=== PATIENT | female | born 1955 | race Caucasian/White ===

== ENCOUNTER 2019-07-01 12:40 | Outpatient (CLI) | payer BC, SELFPAY ==
--- NOTE | ~2019-07-01 | MR_ITS ---
EXAMINATION: MR hip RT w con DATE: 07/01/2019 14:55 INDICATION: Right hip pain TECHNIQUE: Magnetic resonance (MR) arthrogram of the right hip was performed following intra-articula r gadolinium contrast injection and without intravenous contrast. Details of the hip joint injection have been dictated separately. Sequences included small field of view of the right hip with axial and sagittal T1-weighted FS SE and T2-weighted FS FSE and coronal T1-weighted SE and T2-weighted FS FSE . Additional T1-weighted FGRE images in a radial pattern oriented orthogonal to the acetabular rim we re obtained for evaluation of the labrum. COMPARISON: None. FINDINGS: Bones/labrum/cartilage: Alignment is normal. No fracture, avascular necrosis or pathologic marrow replacing process. Contras t filled labral tear the base of the 10:00-11:00 position of the posterior superior acetabular labrum . Marginal osteophytes along the anterosuperior and superolateral acetabulum appears to replace a sig nificant portion of the labrum the remaining tissue of which now appears small. Mild nonuniform parti al thickness acetabular and femoral cartilage loss along the peripheral margins of the joint space. Soft tissues: Normal and symmetric muscle bulk and signal in the pelvis and visualized proximal thighs. The bilater al iliopsoas, gluteal and proximal hamstring tendons are normal. The uterus is not identified and has likely been surgically resected. Limited evaluation of visceral organs of the pelvis is otherwise un remarkable. No pathologically enlarged pelvic/inguinal lymphadenopathy. IMPRESSION: 1. Mild right hip osteoarthritis with tear at the posterosuperior acetabular labrum. Reviewed, dictated and finalized at location A. ON BREAKER IMPRESSION: 1. Mild right hip osteoarthritis with tear at the posterosuperior acetabular la margarita.
--- NOTE | ~2019-07-01 | XR_ITS ---
. EXAMINATION: XR fl inj hip RT for MR/CT DATE: 07/01/2019 15:00 INDICATION: Right hip pain. TECHNIQUE: A time-out was performed to verify the patient's name, date of , and procedure to b e performed. The procedure including the risks, benefits, and alternatives was discussed with the pat ient. Risks discussed included bleeding and infection. The patient understood the risks and agreed to proceed. The skin overlying the right hip joint was prepped and draped in usual sterile fashion. An esthetic was administered with 1% lidocaine subcutaneously. A 22 G needle was advanced under fluoros copic guidance into the joint. Subsequently, injectate consisting of 6 mL of 1:200 Multihance, 1:4 1 % lidocaine, and 1:4 Omnipaque 240 was instilled. The needle was removed and the entry site was brody ladan and dressed. There were no immediate complications. Fluoroscopy exposure time was 0.1 minutes. T he total number of images was 3. FINDINGS: Real-time fluoroscopy demonstrates the needle and contrast in the right hip joint. IMPRESSION: 1. Successful right hip joint injection of contrast for subsequent MR arthrography. Reviewed, dictated and finalized at location A. 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 Successful right hip joint injection of contrast for subsequent MR arthrogra phy.
== END 2019-07-01 12:41 | disposition home or self-care (01) ==
PROVIDERS: PCP Orthopaedic Surgery; Visit Provider Orthopaedic Surgery
DX: S73.191A Other sprain of right hip, initial encounter (principal); X58.XXXA Exposure to other specified factors, initial encounter; M16.11 Unilateral primary osteoarthritis, right hip
CPT/HCPCS: 20610; 73722; 77002; Q9966

== ENCOUNTER 2020-01-31 09:14 | Outpatient (CLI) | payer BC, SELFPAY ==
--- NOTE | ~2020-01-31 | MM_ITS ---
EXAMINATION: MM screening maximino BI w quentin HISTORY: Screening TECHNIQUE: Craniocaudal and mediolateral oblique 3-D tomosynthesis images were obtained and synthetic 2-D images were generated. CAD analysis was submitted and interpreted. COMPARISON: Comparison to multiple prior studies sequentially, with oldest reviewed study dated 03/25. BREAST PARENCHYMAL COMPOSITION: There are scattered areas of fibroglandular density. FINDINGS: There is no evidence of suspicious mass, calcification, or architectural distortion to sugg est malignancy in either breast. There has been no suspicious interval change. IMPRESSION: 1. No mammographic evidence of malignancy. 2. Recommend routine screening mammography in one year. BI-RADS Category 1: Negative Reviewed, dictated and finalized at location A.
--- NOTE | ~2020-01-31 | DEXA_ITS ---
Bone Density Report Name: Irlanda Benites Age: 64 Sex: Female Ethnicity: White Date of : 1955 Indication: osteopenia; prior fracture; cancer; hysterectomy; Referring Provider: Leslee Guzman Study: Bone densitometry was performed. Exam Date: January 31, 2020 Accession number: [id number] Bone Density: Region BMD T-score Z-score Classification AP Spine (L1-L4) 0.944 -0.9 0.8 Normal Femoral Neck (Left) 0.656 -1.7 -0.3 Osteopenia Total Hip (Left) 0.813 -1.1 0.1 Osteopenia Total Hip Bilateral Avg 0.754 -1.6 -0.4 Osteopenia Femoral Neck (Right) 0.626 -2.0 -0.5 Osteopenia Total Hip (Right) 0.694 -2.0 -0.8 Osteopenia World Health Organization criteria for BMD impression classify patients as: Normal (T-score at or above -1.0), Osteopenia (T-score between -1.0 and -2.5), or Osteoporosis (T-score at or below -2.5). 10-year Fracture Risk(1): Major Osteoporotic Fracture 15% Hip Fracture 2.3% Reported Risk Factors: [place] (), Neck BMD=0.626, BMI=20.2, previous fracture (1) FRAX(R) Version 3.08. Fracture probability calculated for an untreated patient. Fracture probability may be lower if the patient has received treatment. Previous Exams: Region Exam Age BMD T-score BMD Change BMD Change Date g/cm2 vs Baseline vs Previous AP Spine(L1-L4) 01/31/2020 64 0.944 -0.9 -0.223(-19.1%) -0.046(-4.6%)* 06/29/2015 60 0.990 -0.5 -0.177(-15.1%) -0.087(-8.1%)# 02/28/2011 55 1.077 0.3 -0.090(-7.7%)* -0.067(-5.9%)* 01/28/2008 52 1.144 0.9 -0.023(-1.9%) -0.023(-1.9%) 10/18/2004 49 1.167 1.1 Total Hip(Left) 01/31/2020 64 0.813 -1.1 -0.011(-1.3%)# -0.012(-1.4%) 06/29/2015 60 0.825 -1.0 0.001(0.2%)# 0.022(2.8%)# 02/28/2011 55 0.803 -1.1 -0.021(-2.6%) 0.015(2.0%) 01/28/2008 52 0.788 -1.3 -0.037(-4.4%)* -0.037(-4.4%)* 10/18/2004 49 0.824 -1.0 Total Hip(Right) 01/31/2020 64 0.694 -2.0 -0.061(-8.0%)# -0.067(-8.8%)* 06/29/2015 60 0.761 -1.5 0.006(0.8%)# 0.048(6.8%)# 02/28/2011 55 0.713 -1.9 -0.042(-5.6%)* -0.018(-2.5%) 01/28/2008 52 0.731 -1.7 -0.024(-3.2%) -0.024(-3.2%) 10/18/2004 49 0.755 -1.5 *Denotes significance at 95% confidence level, LSC for AP Spine = 0.022 g/cm2, LSC for Total Hip = 0.027 g/cm2 Clinical Information Provided by Patient: Has had a low trauma fracture Has used the following medications: Vitamin D, Calcium Has the following medical conditions: Cancer, Hysterectomy Patient maximum height
== END 2020-01-31 09:15 | disposition home or self-care (01) ==
LOC: ANHIMG 09:19
PROVIDERS: PCP Family Medicine; Visit Provider Family Medicine
DX: Z12.31 Encounter for screening mammogram for malignant neoplasm of breast (principal); N95.1 Menopausal and female climacteric states; M85.852 Other specified disorders of bone density and structure, left thigh; M85.851 Other specified disorders of bone density and structure, right thigh
CPT/HCPCS: 77063; 77067; 77080

== ENCOUNTER 2021-02-01 10:33 | Outpatient (CLI) | payer MEDICARE, BC, SELFPAY ==
--- NOTE | ~2021-02-01 | MM_ITS ---
EXAMINATION: MM screening maximino BI w quentin HISTORY: Screening mammogram TECHNIQUE: Craniocaudal and mediolateral oblique 3-D tomosynthesis images were obtained and synthetic 2-D images were generated. CAD analysis was submitted and interpreted. COMPARISON: 01/31/2020, 09/08/2018, 07/15/2017 bilateral digital screening mammogram examinations BREAST PARENCHYMAL COMPOSITION: There are scattered areas of fibroglandular density. FINDINGS: There is no evidence of suspicious mass, calcification, or architectural distortion to sugg est malignancy in either breast. There has been no suspicious interval change. IMPRESSION: 1. No mammographic evidence of malignancy. 2. Recommend routine screening mammography in one year. BI-RADS Category 1: Negative Reviewed, dictated and finalized at location A.
== END 2021-02-01 10:34 | disposition home or self-care (01) ==
LOC: ANHIMG 10:38
PROVIDERS: PCP Family Medicine; Visit Provider Physician Assistant
DX: Z12.31 Encounter for screening mammogram for malignant neoplasm of breast (principal)
CPT/HCPCS: 77063; 77067

== ENCOUNTER 2022-02-12 15:25 | Outpatient (CLI) | payer MEDICARE, BC, SELFPAY ==
--- NOTE | ~2022-02-12 | MM_ITS ---
EXAMINATION: MM screening maximino BI w quentin HISTORY: Screening mammogram, family history of breast cancer in her mother. TECHNIQUE: Craniocaudal and mediolateral oblique 3-D tomosynthesis images were obtained and synthetic 2-D images were generated. CAD analysis was submitted and interpreted. COMPARISON: 02/01/2021, 01/31/2020, 09/08/2018 BREAST PARENCHYMAL COMPOSITION: There are scattered areas of fibroglandular density. FINDINGS: There is no suspicious mass, calcification, or architectural distortion to suggest malignan cy in either breast. There has been no suspicious interval change. IMPRESSION: 1. No mammographic evidence of malignancy. 2. Recommend routine screening mammography in one year. BI-RADS Category 1: Negative Reviewed, dictated and finalized at location A.
--- NOTE | ~2022-02-12 | DEXA_ITS ---
Bone Density Report Name: HEVER VALDIVIA Age: 66 Sex: Female Ethnicity: White Date of : 1955 Indication: postmenopausal; screening for osteoporosis; hysterectomy; Referring Provider: JOZEF MOTA Study: Bone densitometry was performed. Exam Date: February 12, 2022 Accession number: [id number] Bone Density: Region BMD T-score Z-score Classification AP Spine(L1-L4) 0.953 -0.9 1.0 Normal Femoral Neck (Left) 0.705 -1.3 0.3 Osteopenia Total Hip (Left) 0.829 -0.9 0.4 Normal Femoral Neck (Right) 0.654 -1.8 -0.2 Osteopenia Total Hip (Right) 0.750 -1.6 -0.3 Osteopenia Total Hip Mean 0.789 -1.3 0.1 Osteopenia World Health Organization criteria for BMD impression classify patients as: Normal (T-score at or above -1.0), Osteopenia (T-score between -1.0 and -2.5), or Osteoporosis (T-score at or below -2.5). 10-year Fracture Risk(1): Major Osteoporotic Fracture 9.5% Hip Fracture 1.3% Reported Risk Factors: [place] (), Neck BMD=0.654, BMI=22.8 (1) FRAX(R) Version 3.08. Fracture probability calculated for an untreated patient. Fracture probability may be lower if the patient has received treatment. Clinical Information Provided by Patient: Has used the following medications: Vitamin D, Calcium Has the following medical conditions: Hysterectomy Patient maximum height was 66 Menopause Age: 40 Drinks caffeinated beverages Onset of menses at age 10 Number of children 2 Impression: The patient has low bone mass, based on the Right Femoral Neck T-score. The patient has an estimated ten-year risk of hip fracture of 1.3% and an estimated ten-year risk of major fracture of 9.5%, based on the WHO FRAX algorithm. Discussion: BONE DENSITY IS LOW AT ONE OR MORE SKELETAL SITES. This patient's lowest T-score is low at one or more skeletal sites. It meets the World Health Organization's (WHO) criteria for ?low bone mass? (T-score between -1.0 and -2.5). The patient's 10-year risk of fracture as calculated by FRAX is less than the threshold where pharmacological therapy is recommended by the National Osteoporosis Foundation (NOF). However, all treatment decisions require clinical judgment and consideration of individual patient factors, including patient preferences, comorbidities, previous drug use, risk factors not captured in the FRAX model (e.g., frailty, falls, vitamin D deficiency, increased bone turnover, interval significant decline in bone density) and possible under or overestimation of fracture risk by FRAX. The patient should follow a healthful lifestyle (good nutrition with adequate calcium and vitamin D, and appropriate weight-bearing exercise). Follow-Up: Consider repeating this study in 2 to 3 years to reassess this patient's status, or sooner if there is some new clin
== END 2022-02-12 15:26 | disposition home or self-care (01) ==
PROVIDERS: PCP Family Medicine; Visit Provider Nurse Practitioner
DX: Z12.31 Encounter for screening mammogram for malignant neoplasm of breast (principal); Z78.0 Asymptomatic menopausal state; M85.852 Other specified disorders of bone density and structure, left thigh; M85.851 Other specified disorders of bone density and structure, right thigh
CPT/HCPCS: 77063; 77067; 77080

== ENCOUNTER 2023-06-03 14:15 | Outpatient (CLI) | payer MEDICARE, BC, SELFPAY ==
--- NOTE | ~2023-06-03 | MM_ITS ---
EXAMINATION: MM screening maximino BI w quentin HISTORY: Screening mammogram, family history of breast cancer in her mother. TECHNIQUE: Craniocaudal and mediolateral oblique 3-D tomosynthesis images were obtained and synthetic 2-D images were generated. CAD analysis was submitted and interpreted. COMPARISON: 02/12/2022, 02/01/2021, 01/31/2020 BREAST PARENCHYMAL COMPOSITION: There are scattered areas of fibroglandular density. FINDINGS: No suspicious mass, calcification, or architectural distortion are identified in either clemencia ast to suggest malignancy. There has been no suspicious interval change. IMPRESSION: 1. No mammographic evidence of malignancy. 2. Recommend routine screening mammography in one year. BI-RADS Category 1: Negative Reviewed, dictated and finalized at location A. 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
== END 2023-06-03 14:16 | disposition home or self-care (01) ==
LOC: ANHIMG 14:17
PROVIDERS: PCP Family Medicine; Visit Provider Nurse Practitioner
DX: Z12.31 Encounter for screening mammogram for malignant neoplasm of breast (principal)
CPT/HCPCS: 77063; 77067

== ENCOUNTER 2023-08-03 16:07 | Outpatient (CLI) | payer MEDICARE, BC, SELFPAY ==
--- NOTE | ~2023-08-03 | CT_ITS ---
EXAMINATION: CT sinus wo con DATE: 08/03/2023 16:37 INDICATION: Chronic maxillary sinusitis TECHNIQUE: Computed tomography (CT) of the paranasal sinuses was performed without contrast. Iterativ e reconstruction technique was employed. Exam dose: 299.51 mGy-cm total exam DLP. COMPARISON: None FINDINGS: There is rightward bowing of nasal septum. There is moderately prominent symmetric soft tissue swelling of the nasal turbinates. The ostiomeatal units are patent bilaterally. There is an isolated opacified right ethmoid air cell. The paranasal sinuses are otherwise normally d eveloped and aerated. The mastoid air cells are normally developed and aerated. Middle and inner ear apparatus appear normal bilaterally. IMPRESSION: Rightward bowing of nasal septum Isolated opacified right ethmoid air cell. Paranasal sinuses, ostiomeatal units and mastoid air cells are otherwise normally developed and aerated Reviewed, dictated and finalized at Location A. Reviewed, dictated and finalized at location A.
== END 2023-08-03 16:08 | disposition home or self-care (01) ==
LOC: ANHIMG 16:13
PROVIDERS: PCP Family Medicine; Visit Provider Otolaryngology
DX: J32.0 Chronic maxillary sinusitis (principal)
CPT/HCPCS: 70486

== ENCOUNTER 2024-07-07 14:26 | Outpatient (CLI) | payer MEDICARE, BC, SELFPAY ==
--- NOTE | ~2024-07-07 | DEXA_ITS ---
Bone Density Report Name: HEVER VALDIVIA Age: 69 Sex: Female Ethnicity: White Date of : 1955 Indication: osteopenia; cancer; hysterectomy; Referring Provider: JOZEF MOTA Study: Bone densitometry was performed. Exam Date: July 07, 2024 Accession number: [id number] Bone Density: Region BMD T-score Z-score Classification AP Spine(L1-L4) 0.887 -1.5 0.6 Osteopenia Femoral Neck (Left) 0.656 -1.7 0.0 Osteopenia Total Hip (Left) 0.827 -0.9 0.5 Normal Femoral Neck (Right) 0.637 -1.9 -0.2 Osteopenia Total Hip (Right) 0.722 -1.8 -0.4 Osteopenia Total Hip Mean 0.775 -1.4 0.1 Osteopenia World Health Organization criteria for BMD impression classify patients as: Normal (T-score at or above -1.0), Osteopenia (T-score between -1.0 and -2.5), or Osteoporosis (T-score at or below -2.5). 10-year Fracture Risk(1): Major Osteoporotic Fracture 11% Hip Fracture 1.8% Reported Risk Factors: [place] (), Neck BMD=0.637, BMI=23.4 (1) FRAX(R) Version 3.08. Fracture probability calculated for an untreated patient. Fracture probability may be lower if the patient has received treatment. Previous Exams: Region Exam Age BMD T-score BMD Change BMD Change Date g/cm2 vs Baseline vs Previous AP Spine (L1-L4) 07/07/2024 69 0.887 -1.5 -0.103 (-10.4% -0.066 (-6.9%) 02/12/2022 66 0.953 -0.9 -0.038 (-3.8%) 0.008 (0.9%) 01/31/2020 64 0.944 -0.9 -0.046 (-4.6%) -0.046 (-4.6%) 06/29/2015 60 0.990 -0.5 Total Hip(Left) 07/07/2024 69 0.827 -0.9 0.002 (0.2%) -0.001 (-0.2%) 02/12/2022 66 0.829 -0.9 0.003 (0.4%) 0.015 (1.9%) 01/31/2020 64 0.813 -1.1 -0.012 (-1.4%) -0.012 (-1.4%) 06/29/2015 60 0.825 -1.0 Total Hip(Right) 07/07/2024 69 0.722 -1.8 -0.039 (-5.1%) -0.028 (-3.7%) 02/12/2022 66 0.750 -1.6 -0.011 (-1.5%) 0.056 (8.0%)* 01/31/2020 64 0.694 -2.0 -0.067 (-8.8%) -0.067 (-8.8%) 06/29/2015 60 0.761 -1.5 *Denotes significance at 95% confidence level, LSC for AP Spine = 0.022 g/cm2, LSC for Total Hip = 0.027 g/cm2 Clinical Information Provided by Patient: Has used the following medications: Vitamin D, Calcium Has the following medical conditions: Cancer, Hysterectomy Patient maximum height was 66 Menopause Age: 40 Drinks caffeinated beverages Onset of menses at age 12 Number of children 2 Impression: The patient has low bone mass, based on the Right Femoral Neck T-score. The patient has an estimated ten-year risk of hip fracture of 1.8% and an estimated ten-year risk of major fracture of 11%, based on the WHO FRAX algorithm. The BMD for the AP Spine (L1-L4) decreased, changing by -6.9% since the last DXA exam. The BMD for the Total Hip(Right) decreased, changing by -3.7% since the last DXA exam. Discussion: BONE DENSITY IS LOW AT ONE OR MORE SKELETAL SITES. This patient's lowest T-score is low at one or more skeletal sites. It meets the World Health Organization's (WHO) criteria for ?low bone mass? (T-score between -1.0 and -2.5). The patient's 10-year risk of fracture as calculated by FRAX is less than the threshold where pharmacological therapy is recommended by the National Osteoporosis Foundation (NOF). However, all treatment decisions require clinical judgment and consideration of individual patient factors, including patient preferences, comorbidities, previous drug use, risk factors not captured in the FRAX model (e.g., frailty, falls, vitamin D deficiency, increased bone turnover, interval significant decline in bone density) and possible under or overestimation of fracture risk by FRAX. The patient should follow a healthful lifestyle (good nutrition with adequate calcium and vitamin D, and appropriate weight-bearing exercise). Follow-Up: Consider repeating this study in 2 years to reassess this patient's status, or sooner if there is some new clinical indication. Reported by: JOSEY on 07/07/2024 3:09:00 PM. Reviewed, dictated and finalized at location [facility]
--- NOTE | ~2024-07-07 | MM_ITS ---
EXAMINATION: MM screening maximino BI w quentin HISTORY: Screening TECHNIQUE: Craniocaudal and mediolateral oblique 3-D tomosynthesis images were obtained and synthetic 2-D images were generated. CAD analysis was submitted and interpreted. COMPARISON: Comparison to multiple prior studies sequentially, with oldest reviewed study dated 07/15. BREAST PARENCHYMAL COMPOSITION: Not dense: There are scattered areas of fibroglandular density. FINDINGS: There is no evidence of suspicious mass, calcification, or architectural distortion to sugg est malignancy in either breast. There has been no suspicious interval change. IMPRESSION: 1. No mammographic evidence of malignancy. 2. Recommend routine screening mammography in one year. BI-RADS Category 1: Negative Reviewed, dictated and finalized at location B. KOUT MAN
--- OUTSIDE RECORDS SUMMARY | 2024-07-07 14:31 | XMS_ITS | Continuity of Care Document ---
Author Organization [facility] Address [address] [place] [address] [place] [address] Phone Care Team Providers Care Street Roller Engineer Name Role Phone Cade Vaughan DO Unavailable Unavailable Advance Directives Directive Yes / No Effective Date File Name No Information Encounters Encounter Description Practice Location Reason(s) For Visit Diagnoses Date Provider Providers Copied on Encounter [facility], [address], [place], [place], [id number], [place] tel:[phone] [facility] No Information Alexus Guerra. [address] [facility], [place], [address], [place]. tel: [phone] Family History Family Member Type Diagnosis Age At Onset No Information Payers Payer name Insurance type Covered green party ID Authoriza tion(s) [facility] Commercial [id number] Social History Type Description Quantity Date Captured Comments Sex Female Smoking Status No Information Chief Complaint And Reason For Visit No Information Reason For Referral Reason For Referral No Information History Of Present Illness Encounter Date Complaint History Of Prese nt Illness No Information Functional Status Date Functional Assessmen t No Information Instructions Date Instruction Additional Infor mation No Information Assessments Type Assessment Date No Information Patient Care Teams Name Effective Dates (start - stop) Status Members No Information
--- OUTSIDE RECORDS SUMMARY | 2024-07-07 14:31 | XMS_ITS | Referral Summary ---
Author Organization [facility] Address [address] [place] [address] Care Team Providers Care Job Coach Name Role Phone Derek Keith MD Primary Care Provider [phone] Source Comments [facility] and Associated Physician Practices is amultiple site organization consisting of ambulatory clinics and hospital sitesin [place], [place], [place] and [place]. This disclosure is being madepursuant to the Care Everywhere program and may not contain all information available regarding this patient. Last updated 18.[facility] Social History Tobacco Use Types Packs/Day Years Used Date Smoking Tobacco: Never Assessed Sex and Gender Information Value Date Recorded Sex Assigned at Not on file Gender Identity Not on file Sexual Orientation Not on file Plan of Treatment Not on file Care Teams Job Coach Relationship Specialty Start Date End Date Derek Keith MD [address] [place] [id number] PCP - General 02/12/09
--- OUTSIDE RECORDS SUMMARY | 2024-07-07 14:31 | XMS_ITS | Referral Summary ---
Author Organization [facility] Address [address] [place] [address] Care Team Providers Care Glaze Wiper Name Role Phone Leslee Guzman DO Primary Care Provider [phone] Allergies No known active allergies Medications celecoxib (CeleBREX) 100 mg capsule as needed Active atorvastatin (LIPITOR) 20 mg tablet Take 1 tablet (20 mg total) by mouth daily 0 Active omeprazole (PriLOSEC) 40 mg capsule omeprazole 40 mg capsule,delayed release Active metroNIDAZOLE (METROGEL) 1 % gelIndications: Acne Rosacea Apply topically daily Active Active Problems Problem Noted Date Diagnosed Date Encounter for screening colonoscopy 12/14/2019 Overview (12/14/2019): Added automatically from request for surgery [id number] Garcia's esophagus without dysplasia 06/07/2019 Overview (06/07/2019): Added automatically from request for surgery [id number] History of Garcia's esophagus 02/23/2018 Overview (02/23/2018): Added automatically from request for surgery [id number] Social History Tobacco Use Types Packs/Day Years Used Date Smoking Tobacco: Never Smokeless Tobacco: Never Tobacco Cessation:Counseling Given: Not Answered Alcohol Use Standard Drinks/Week Comments Yes 3 (1 standard drink = 0.6 oz pur e alcohol) AUDIT-C Answer Date Recorded Q1: How often do you have a drink containing alc ohol? 2-3 times a week 01/06/2022 Q2: How many drinks containi ng alcohol do you have on a typical day when you are drinking? 1 or 2 01/06/2022 Q3: How often do you have si x or more drinks on one occasion? Never 01/06/2022 Personal Safety Answer Date Recorded Have you ever been in or are you currently in a harmful physical or emotional relationship or is someone making you feel afraid or unsafe? 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 Gender Identity Not on file Sexual Orientation Not on file Last Filed Vital Signs Vital Sign Reading Time Taken Comments Blood Pressure 99/62 01/12/2023 10:55 AM CDT Pulse 64 01/12/2023 10:55 AM CDT Temperature 36 C (96.8 F) 01/12/2023 10:22 AM CDT Respiratory Rate 11 01/12/2023 10:55 AM CDT Oxygen Saturation 96% 01/12/2023 10:55 AM CDT Inhaled Oxygen Concentration - - Weight 63.5 kg (140 lb) 01/12/2023 9:47 AM CDT Height 167.6 cm (5' 6 ) 01/12/2023 9:47 AM CDT Body Mass Index 22.6 01/12/2023 9:47 AM CDT Plan of Treatment Not on file Procedures Procedure Name Priority Date/Time Associated Diagnosis Comments COLONOSCOPY 01/17/2020 9:51 AM CDT from Last 3 Months or Most Recently Relevant to Health Maintenance Results * COLONOSCOPY (01/17/2020 9:51 AM CDT) Anatomical Region Laterality Modality Other Narrative Procedure Note Joel Clifford MD - 01/17/2020 9:51 AM CDT ENDOSCOPY LAB Patient Name: Hever Valdivia Procedure Date: 01/17/2020 9:51 AM Date of : 1955 Admit Type: Outpatient Age: 64 Gender: Female Attending MD: Joel Clifford M.D. Room: [facility] ENDOSCOPY ROOM 04 Note Status: Finalized Procedure: Colonoscopy Indications: High risk colon cancer surveillance: Personal historyof colonic polyps, Last colonoscopy: September 2016 Providers: Joel Clifford M.D. Referring MD: Derek Keith MD Medicines: Monitored Anesthesia Care Complications: No immediate complications. Estimated Blood Loss: Estimated blood loss: none. Procedure: Pre-Anesthesia Assessment: - The risks and benefits of the procedure and thesedation options and risks were discussed with the patient. All questions were answered and informed consent wasobtained. - Immediately prior to administration of medications,the patient was re-assessed for adequacy to receivesedatives. The benefits, risks and alternatives of the procedureand sedation were discussed and informed consent wasobtained. All questions were answered. Please refer to the signed informed consent document in the medical record. The colonoscopy was performed without difficulty. Thepatient tolerated the procedure well. The quality of the bowel preparation was evaluated using the BBPS ([place] Bowel Preparation Scale) with scores of: Right Colon = 3, Transverse Colon = 3 and Left Colon = 3 (entire mucosa seen well with no residual staining, small fragments of stool or opaque liquid). The total BBPS score equals 9. The scope was passed under direct vision. The [id number] was introduced through the anus and advanced to the cecum, identified by appendicealorifice and ileocecal valve. Findings: A 4 mm polyp was found in the ascending colon. The polyp was sessile. The polyp was removed with a cold snare. Resection and retrieval were complete. The exam was otherwise without abnormality on direct and retroflexion views. Impression: - One 4 mm polyp in the ascending colon, removed with a cold snare. Resected and retrieved. - The examination was otherwise normal on direct and retroflexion views. Recommendation: - Await pathology results. - Repeat colonoscopy in 5 years for surveillance. Attending Participation: I personally performed the entire procedure. Electronically Signed: Joel Clifford MD Joel Clifford M.D. 01/17/2020 10:42:57 AM Number of Addenda: 0 Note Initiated On: 01/17/2020 9:51 AM Joel Clifford MD ENDOSCOPY PROCEDURES Zamzam l Result from Last 3 Months or Most Recently Relevant to Health Maintenance Insurance [employer] [place] [address] [place] [address] [facility] H[facility]/PPO Address: [address] [address] [place] [address] [facility] [place] MEDICARE MEDICARE [facility] FEDERAL MEDICARE [facility] Advance Directives For more information, please contact: [phone] * Full Code (Latest Code Status on File) Date Activated Date Inactivated Comments 01/12/2023 10:22 AM 01/12/2023 3:10 PM * Full Code Date Activated Date Inactivated Comments 01/06/2022 8:35 AM 01/06/2022 2:09 PM * Full Code Date Activated Date Inactivated Comments 01/03/2021 8:05 AM 01/03/2021 2:16 PM * Full Code Date Activated Date Inactivated Comments 01/17/2020 9:03 AM 01/17/2020 3:32 PM * Full Code Date Activated Date Inactivated Comments 05/11/2019 8:14 AM 05/11/2019 1:54 PM Care Teams Glaze Wiper Relationship Specialty Start Date End Date Leslee Guzman DO [facility] - General 11/28/20
--- OUTSIDE RECORDS SUMMARY | 2024-07-07 14:31 | XMS_ITS | Patient Health Summary ---
Author Organization [facility] Address [address] [address] Care Team Providers Care Translator/Interpreter Name Role Phone Derek Keith MD Primary Care Provider [phone] Note from [facility],non-owned Affiliates and Associated Physician Practices is amultiple site organization consisting of ambulatory clinics and hospital sitesin [place], [place], [place] and [place]. This disclosure is being madepursuant to the Care Everywhere program and may not contain all information available regarding this patient. Last updated 18.[facility] Social History Tobacco Use Types Packs/Day Years Used Date Smoking Tobacco: Never Assessed Sex and Gender Information Value Date Recorded Sex Assigned at Not on file Gender Identity Not on file Sexual Orientation Not on file Procedures * DERMATOPATHOLOGY(Performed 11/02/2018) * DERMATOPATHOLOGY(Performed 05/27/2017) * DERMATOPATHOLOGY(Performed 04/15/2016) Results * DERMATOPATHOLOGY (11/02/2018 12:00 AM CDT) Only the most recent of3 resultswithin the time period is included. Case Report Dermatopathology Report Case: [id number] Authorizing Provider: Kashif Sofia MD Collected: 11/02/2018 12:00 AM Pathologist: Sunitha Carbajal MD Received: 11/03/2018 02:01 PM Specimen: Skin, left ant shoulder 9 4:31 PM CDT DERMATOPATHOLOGY LABORATORY Final Diagnosis Specimen A. SKIN, left ant shoulder: LICHEN PLANUS-LIKE KERATOSIS (BENIGN LICHENOID KERATOSIS) (L82.1) NOT PRESENT AT SAMPLED MARGIN 9 4:31 PM CDT DERMATOPATHOLOGY LABORATORY Clinical History R/O BCC. Check margins. 4:31 PM CDT DERMATOPATHOLOGY LABORATORY Gross Description Specimen A: Received is one formalin filled container labeled with the patients name and designated left ant shoulder. The specimen consists of a shave removal measuring [id number]. The margin is inked green. Jar 0. 4:31 PM CDT DERMATOPATHOLOGY LABORATORY Microscopic Description Specimen A. SKIN, left ant shoulder: The epidermis is mildly acanthotic. There is a lichenoid infiltrate with vacuolar changes of basilar keratinocytes and scattered necrotic keratinocytes. This lesion is not present at the sampled margin of the specimen. 4:31 PM CDT DERMATOPATHOLOGY LABORATORY Disclaimer An external and internal positive and negative controls are appropriate for the histochemical, immunohistochemical and immunofluorescence stain(s) in this case (if any), except where stated explicitly. The performance characteristics of the stain(s) cited in this report were developed and its performance characteristic determined by the Dermatopathology Laboratory at [facility], directed by Dr. Hong Gasca. These tests need not be, and therefore are not, approved by the [place] Food and Drug Administration. The tests are used for clinical purposes. Billing Codes Specimen Charges Stain Charges 56906 1 4:31 PM CDT DERMATOPATHOLOGY LABORATORY Embedded Images 4:31 PM CDT DERMATOPATHOLOGY LABORATORY Pathology/Cytolog y TISSUE SPECIMEN FROM SKIN / Unknown 11/02/2018 11/03/2018 2:01 PM CDT Kashif Sofia MD LAB - PATHOLOGY/CYTO LOGY ORDERABLES DERMATOPATHOLOGY LABORATORY [facility] - Department of Dermatology [address] [place] [address], 5th Floor Lab B [address] [phone] Care Teams Translator/Interpreter Relationship Specialty Start Date End Date Derek Keith MD [address] [place] [address] PCP - General 02/12/09
--- OUTSIDE RECORDS SUMMARY | 2024-07-07 14:31 | XMS_ITS | Clinical Summary ---
Author Organization [facility] Address [address] [place] [address] Care Team Providers Care Hair Weaver Name Role Phone Derek Kieth MD Primary Care Provider [phone] Source Comments [facility] Affiliates and Associated Physician Practices is amultiple site organization consisting of ambulatory clinics and hospital sitesin [place], [place], [place] and [place]. This disclosure is being madepursuant to the Care Everywhere program and may not contain all information available regarding this patient. Last updated 18.[facility] [employer] Social History Tobacco Use Types Packs/Day Years Used Date Smoking Tobacco: Never Assessed Sex and Gender Information Value Date Recorded Sex Assigned at Not on file Gender Identity Not on file Sexual Orientation Not on file Plan of Treatment Health Maintenance Due Date Last Done Comments BONE DENSITY TESTING 1955 COLOGUARD (AGES 45-75) - COL ON CA SCREENING 1955 COLON MONITORING 1955 COLONOSCOPY - COLON CA SCREENING 1955 CT COLONOGRAPHY - COLON CA SCREENING 1955 Colorectal Cancer Screening 1955 FIT - COLON CA SCREENING 1955 FLEX SIG - COLON CA SCREENING 1955 LIPID TESTING 1955 MAMMOGRAM 1955 HEPATITIS C SCREENING 06/23/1973 DTAP/TDAP/TD VACCINES (1 - Tdap) 1974 PNEUMOCOCCAL VACCINE 50+ (1 of 1 - PCV) 2005 ZOSTER VACCINE (1 of 2) 2005 COVID-19 VACCINE ( - 2023-2 5 season) 2024 INFLUENZA VACCINE (#1) 2024 DEPRESSION SCREENING 05/25/2024 Respiratory Syncytial Virus (RSV) Vaccine Pt: or over 60 yrs (1 - 1-dose 75+ series) 2030 HEPATITIS B VACCINE Aged Out No longe r eligible based on patient's age to complete this topic HIB VACCINE Aged Out No longer eligi ble based on patient's age to complete this topic HPV VACCINE Aged Out No longer eligi ble based on patient's age to complete this topic MENINGOCOCCAL (Group B) VACCINE Aged Out No longer eligible based on patient's age to complete this topic MENINGOCOCCAL VACCINE Aged Out No fede estrella eligible based on patient's age to complete this topic Care Teams Hair Weaver Relationship Specialty Start Date End Date Derek Keith MD [address] [place] [address] PCP - General 02/12/09
--- OUTSIDE RECORDS SUMMARY | 2024-07-07 14:31 | XMS_ITS | Encounter Summary ---
Author Organization [facility] Address [address] [place] [address] Care Team Providers Care Short Filler Bunch Machine Operator Name Role Phone Derek Keith MD Primary Care Provider [phone] Encounter Details Date Type Department Care Team (Late st Contact Info) Description 11/03/2018 Lab Requisition [facility] D[facility] Lab [address] [place] [address] Kashif Sofia MD [address] [place] [address] Social History Tobacco Use Types Packs/Day Years Used Date Smoking Tobacco: Never Assessed Sex and Gender Information Value Date Recorded Sex Assigned at Not on file Gender Identity Not on file Sexual Orientation Not on file documented as of this encounter Plan of Treatment Not on file documented as of this encounter Procedures Procedure Name Priority Date/Time Associated Diagnosis Comments DERMATOPATHOLOGY Routine 11/02/2018 12:0 0 AM CDT documented in this encounter Results * DERMATOPATHOLOGY (11/02/2018 12:00 AM CDT) Case Report Dermatopathology Report Case: [id number] Authorizing Provider: Kashif Sofia MD Collected: 11/02/2018 12:00 AM Pathologist: Sunitha Carbajal MD Received: 11/03/2018 02:01 PM Specimen: Skin, left ant shoulder 9 4:31 PM CDT DERMATOPATHOLOGY LABORATORY Final Diagnosis Specimen A. SKIN, left ant shoulder: LICHEN PLANUS-LIKE KERATOSIS (BENIGN LICHENOID KERATOSIS) (L82.1) NOT PRESENT AT SAMPLED MARGIN 4:31 PM CDT DERMATOPATHOLOGY LABORATORY Clinical History R/O BCC. Check margins. 4:31 PM CDT DERMATOPATHOLOGY LABORATORY Gross Description Specimen A: Received is one formalin filled container labeled with the patients name and designated left ant shoulder. The specimen consists of a shave removal measuring [id number]. The margin is inked green. Jar 0. [...] characteristic determined by the Dermatopathology Laboratory at [facility], directed by Dr. Hong Gasca. These tests need not be, and therefore are not, approved by the [place] Food and Drug Administration. The tests are used for clinical purposes. Billing Codes Specimen Charges Stain Charges 93896 1 4:31 PM CDT DERMATOPATHOLOGY LABORATORY Embedded Images 4:31 PM CDT DERMATOPATHOLOGY LABORATORY Pathology/Cytolog y TISSUE SPECIMEN FROM SKIN / Unknown 11/02/2018 11/03/2018 2:01 PM CDT Kashfi Sofia MD LAB - PATHOLOGY/CYTO LOGY ORDERABLES DERMATOPATHOLOGY LABORATORY [facility] - Department of Dermatology [address], 5th [place] [address], [facility] [phone] documented in this encounter Visit Diagnoses Not on filedocumented in this encounter Care Teams Short Filler Bunch Machine Operator Relationship Specialty Start Date End Date Derek Keith MD [address] [place] [address] PCP - General 02/12/09 documented as of this encounter
--- OUTSIDE RECORDS SUMMARY | 2024-07-07 14:31 | XMS_ITS | Clinical Summary ---
Author Organization [facility] Address [address] [place] [address] Care Team Providers Care Chief Optometry Service Name Role Phone Leslee Guzman DO Primary Care Provider [phone] Allergies No known active allergies Medications celecoxib [...] (12/14/2019): Added automatically from request for surgery [id number] Garcia's esophagus without dysplasia 06/07/2019 Overview (06/07/2019): Added automatically from request for surgery [id number] History of Garcia's esophagus 02/23/2018 Overview (02/23/2018): Added automatically from request for surgery [id number] Surgical History Surgery Date Site/Laterality Comments HYSTERECTOMY LIPOMA RESECTION 05/25/2012 - 05/24/2013 CERVICAL SPINE SURGERY TONSILLECTOMY MOLE REMOVAL FLUORO GUIDED INJECTION HIP RIGHT 09/23/2018 Right FLUORO GUIDED INJECTION HIP RIGHT 03/17/2019 Right ESOPHAGECTOMY 05/25/2000 - 05/24/2001 SECTION COLONOSCOPY Medical History Medical History Date Comments GERD (gastroesophageal reflux disease) Hyperlipidemia Esophageal cancer (CMS/HCC) (HCC) 2000 History of colon polyps Garcia esophagus Colon polyp Uterine prolapse Family History Medical History Relation Name Comments Diabetes Father Hypertension Father Family history of hypertension - (Added by JUDY Conv) Cancer Mother Diabetes Son Family history of diabetes mellitus - (Added by JUDY Conv) Relation Name Status Comments Father Mother Son Social History Tobacco Use Types Packs/Day Years [...] on file 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 Gender Identity Not on file Sexual Orientation Not on file Obstetrics History Last Filed Vital Signs Vital Sign Reading [...] 01/12/2023 9:47 AM CDT Plan of Treatment Health Maintenance Due Date Last Done Comments Breast Cancer Screening-Mammogram 1955 Depression Screening 1955 Hepatitis C Screening 1955 Osteoporosis Screening-Bone Density Scan 1955 DTaP/Tdap/Td Vaccine (1 - Tdap) 1966 Zoster Vaccine (2 of 3) 07/30/2012 06/04/2012 Pneumococcal vaccine 65+ (1 of 1 - PCV) 2020 Well Visit 65+ 2020 Fall Risk Assessment 01/13/2024 01/12/2023 Influenza Vaccine (#1) 2024 02/17/2018, 2012 Colon Cancer Screening-Colonoscopy 01/16/2030 01/17/2020, 10/08/2016, 04/14/2016 Hepatitis B Screening Completed 11/24/2018 , 2018, 05/27/2018 Colon Cancer Screening-CT Colonography Discontinued 01/17/2020, 10/08/2016, 04/14/2016 Colon Cancer Screening-DNA Stool Discontinued 01/17/2020, 10/08/2016, 04/14/2016 Colon Cancer Screening-FIT Discontinued 01/16, 10/08/2016, 04/14/2016 Colon Cancer Screening-Sigmoidoscopy Discontinue d 01/17/2020, 10/08/2016, 04/14/2016 Procedures Procedure Name Priority Date/Time Associated Diagnosis [...] Female Attending MD: Joel Clifford M.D. Room: [facility] ENDOSCOPY ROOM 04 Note Status: Finalized Procedure: [...] bowel preparation was evaluated using the BBPS ([place] Bowel Preparation Scale) with scores of: Right Colon = 3, Transverse Colon = 3 and Left Colon = 3 (entire mucosa seen well with no residual staining, small fragments of stool or opaque liquid). The total BBPS score equals 9. The scope was passed under direct vision. The [id number] was introduced through the anus and advanced [...] Most Recently Relevant to Health Maintenance Insurance [employer] OPEN ACCESS [facility] ACCESS MEDICARE MEDICARE [facility] MEDICARE ON LICENSE OF [facility] Advance Directives For more information, please contact: [phone] * Full Code (Latest Code Status on [...] 8:14 AM 05/11/2019 1:54 PM Care Teams Chief Optometry Service Relationship Specialty Start Date End Date Leslee Guzman DO PCP - General 11/28/20
== END 2024-07-07 14:27 | disposition home or self-care (01) ==
PROVIDERS: PCP Family Medicine; Visit Provider Nurse Practitioner
DX: Z12.31 Encounter for screening mammogram for malignant neoplasm of breast (principal); M85.89 Other specified disorders of bone density and structure, multiple sites
CPT/HCPCS: 77063; 77067; 77080

== ENCOUNTER 2024-09-12 12:57 | Outpatient (CLI) | payer MEDICARE, BC, SELFPAY ==
--- NOTE | ~2024-09-12 | US_ITS ---
EXAMINATION: US carotid duplex BI DATE: 09/12/2024 14:38 INDICATION: Dizziness and giddiness TECHNIQUE: Grayscale, color Doppler, and pulsed Doppler images of the cervical carotid arteries were obtained. The degree of vessel stenosis is placed in one of the following categories: normal, <50%, 5 0-69%, >=70% but less than near-occlusion, near-occlusion, or total occlusion. Note that percent sten osis relative to normal distal artery lumen diameter is indirectly measured from velocity measurement s as described by Elver, et al. Radiology 2003; 229:340-346. COMPARISON: None. FINDINGS: Incidentally noted 1.1 cm rim calcified and shadowing left thyroid nodule. (TI-RADS 4, moderately abe picious , FNA if >=1.5 cm, annual followup is >=1 cm). RIGHT: The right common carotid artery (CCA) peak systolic velocity (PSV) is 82 cm/s. The right internal car otid artery (ICA) PSV is 76 cm/s. The right ICA end-diastolic velocity (EDV) is 27 cm/s. The right IC A/CCA PSV ratio is 0.9. Grayscale and color Doppler images yield an estimate of <50% diameter reducti on from plaque in the ICA. The external carotid artery (ECA) PSV is 85 cm/s. There is antegrade flow in the right vertebral artery. LEFT: The left CCA PSV is 99 cm/s. The left ICA PSV is 74 cm/s. The left ICA EDV is 30 cm/s. The left ICA/C CA PSV ratio is 0.7. Grayscale and color Doppler images yield an estimate of <50% diameter reduction from plaque in the ICA. The ECA PSV is cm/s. There is antegrade flow in the left vertebral artery. IMPRESSION: 1. <50% stenosis in the right internal carotid artery. 2. <50% stenosis in the left internal carotid artery. 3. 1.1 cm rim calcified TI RADS 4 left thyroid nodule for which annual follow-up thyroid ultrasound w ould be recommended. Reviewed, dictated and finalized at location A. IMPRESSION: 1. <50% stenosis in the right internal carotid artery. 2. <50% stenosis in the left internal carotid artery. 3. 1.1 cm rim calcified TI RADS 4 left thyroid nodule for which annual follow-u p thyroid ultrasound would be recommended.
--- OUTSIDE RECORDS SUMMARY | 2024-09-12 14:34 | XMS_ITS | Clinical Summary ---
Author Organization [facility] Address [address] [place] [address] Care Team Providers Care Tube Handler Name Role Phone Derek Keith MD Primary Care Provider [phone] Source Comments [facility],non-[facility] Affiliates and Associated Physician Practices is amultiple site organization consisting of ambulatory clinics and hospital sitesin [place], [place], [place] and [place]. This disclosure is being madepursuant to the Care Everywhere program and may not contain all information available regarding this patient. 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 Gender Identity Not on file Sexual Orientation [...] VACCINE (1 of 2) 2005 COVID-19 VACCINE (1 - 2023-2 5 season) 2024 DEPRESSION SCREENING 05/25/2024 INFLUENZA VACCINE (Season Ended) 2025 Respiratory Syncytial Virus (RSV) Vaccine Pt: or [...] to complete this topic MENINGOCOCCAL (Group B) VACC INE SHARED DECISION-MAKING Aged Out No longer eligibl e based on patient's age to complete this topic MENINGOCOCCAL GROUPS A/C/Y/W VACCINE Aged Out No longer eligible b ased on patient's age to complete this topic Insurance [facility] Care Teams Tube Handler Relationship Specialty Start Date End Date Derek Keith MD [address] [id number] PCP - General 02/12/09
--- OUTSIDE RECORDS SUMMARY | 2024-09-12 14:34 | XMS_ITS | Clinical Summary ---
Author Organization [facility] Address [address] [place] [address] Care Team Providers Care Structural Test Engineer Name Role Phone Leslee Guzman DO Primary Care Provider [phone] Allergies No known active allergies Medications celecoxib [...] (12/14/2019): Added automatically from request for surgery [id number] Garcia's esophagus without dysplasia 06/07/2019 Overview (06/07/2019): Added automatically from request for surgery [id number] History of Garcia's esophagus 02/23/2018 Overview (02/23/2018): Added automatically from request for surgery [id number] Encounters Date Type Department Care Team Description 07/27/2024 Telephone [facility] [address] [place] [address] Delma Burks LPN GI Preprocedure from Last 3 Months Surgical History Surgery Date Site/Laterality Comments HYSTERECTOMY LIPOMA RESECTION 05/25/2012 - 05/24/2013 CERVICAL SPINE SURGERY TONSILLECTOMY MOLE REMOVAL FLUORO GUIDED INJECTION HIP RIGHT 09/23/2018 Right FLUORO GUIDED INJECTION HIP RIGHT 03/17/2019 Right ESOPHAGECTOMY 05/25/2000 - 05/24/2001 SECTION COLONOSCOPY Medical History Medical History Date Comments GERD (gastroesophageal reflux disease) Hyperlipidemia Esophageal cancer (HCC) 2000 History of colon polyps Garcia esophagus Colon polyp Uterine prolapse Family History Medical History Relation Name Comments Diabetes Father Hypertension Father Family history of hypertension - (Added by TW Conv) Cancer Mother Diabetes Son Family history of diabetes mellitus - (Added by TW Conv) Relation Name Status Comments Father Mother [...] on file 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 Room: [facility] ENDOSCOPY ROOM 04 Note Status: Finalized [...] bowel preparation was evaluated using the BBPS ([place] Bowel Preparation Scale) with scores of: Right Colon = 3, Transverse Colon = 3 and Left Colon = 3 (entire mucosa seen well with no residual staining, small fragments of stool or opaque liquid). The total BBPS score equals 9. The scope was passed under direct vision. The [id number] was introduced through the anus and advanced [...] Most Recently Relevant to Health Maintenance Insurance [employer] [place] [address] [place] [address] [facility] MEDICARE MEDICARE [facility] FEDERAL MEDICARE [facility] Advance Directives For more information, please contact: [phone] * Full Code (Latest Code Status on [...] 8:14 AM 05/11/2019 1:54 PM Care Teams Structural Test Engineer Relationship Specialty Start Date End Date Leslee Guzman DO PCP - General 11/28/20
--- OUTSIDE RECORDS SUMMARY | 2024-09-12 14:34 | XMS_ITS | Encounter Summary ---
Author Organization [facility] Address [address] [place] [address] Care Team Providers Care Online Marketing Specialist Name Role Phone Derek Keith MD Primary Care Provider [phone] Encounter Details Date Type Department Care Team (Late st Contact Info) Description 11/03/2018 Lab Requisition [facility] Care D[facility] [address] [place] [address] Kashif Sofia MD [address] [place] [address] Social History Tobacco Use Types Packs/Day Years Used Date Smoking Tobacco: Never Assessed Comments Unknown Sex and Gender Information Value Date Recorded Sex Assigned at Not on file Legal 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 The margin is inked green. Jar 0. [...] characteristic determined by the Dermatopathology Laboratory at [facility], directed by Dr. Hong Gasca. These tests need not be, and therefore are not, approved by the [place] Food and Drug Administration. The tests are used for clinical purposes. Billing Codes Specimen Charges Stain Charges 18034 1 4:31 PM CDT DERMATOPATHOLOGY LABORATORY Embedded Images 4:31 PM CDT DERMATOPATHOLOGY LABORATORY Pathology/Cytolog y TISSUE SPECIMEN FROM SKIN / Unknown 11/02/2018 11/03/2018 2:01 PM CDT us Kashif Sofia MD LAB - PATHOLOGY/CYTOLOGY ORD ERABLES Final Result DERMATOPATHOLOGY LABORATORY [facility] - Department of Dermatology [address] [place] [address], [facility] [phone] documented in this encounter Visit Diagnoses Not on filedocumented in this encounter Care Teams Online Marketing Specialist Relationship Specialty Start Date End Date Derek Keith MD [address] [place] [address] PCP - General 02/12/09 documented as of this encounter
--- OUTSIDE RECORDS SUMMARY | 2024-09-12 14:34 | XMS_ITS | Referral Summary ---
Author Organization [facility] Address [address] [place] [address] Care Team Providers Care Spouting Installer Name Role Phone Leslee Guzman DO Primary Care Provider [phone] Encounters Date Type Department Care Team Description 07/27/2024 Telephone [facility] G[facility]ology [address] [place] [address] Medical Office [address], [address] [place] [address] Delma Burks LPN GI Preprocedure from Last 3 Months Allergies No known active allergies Medications celecoxib [...] (12/14/2019): Added automatically from request for surgery [id number] 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 Room: [facility] ENDOSCOPY ROOM 04 Note Status: Finalized Procedure: [...] bowel preparation was evaluated using the BBPS (Touchet Bowel Preparation Scale) with scores of: Right Colon = 3, Transverse Colon = 3 and Left Colon = 3 (entire mucosa seen well with no residual staining, small fragments of stool or opaque liquid). The total BBPS score equals 9. The scope was passed under direct vision. The [id number] was introduced through the anus and advanced [...] Most Recently Relevant to Health Maintenance Insurance [employer] [place] [place] [address] [facility] HMO/PPO Address: [address] [address] [place] [address] [facility] MEDICARE MEDICARE [facility] Member Subscriber Plan / Payer (Ef fective 2019-Present) Name:Paty Valdivialila Guallpa Relation to Subscriber:Self Name:Hever Valdivia Payer ID:[id number] (NAIC) Group ID:[id number] Type:[employer] Address: [address] [place] [id number] MEDICARE [facility] Advance Directives For more information, please contact: [phone] * Full Code (Latest Code Status on [...] 8:14 AM 05/11/2019 1:54 PM Care Teams Spouting Installer Relationship Specialty Start Date End Date Leslee Guzman DO PCP - General 11/28/20
== END 2024-09-12 12:58 | disposition home or self-care (01) ==
PROVIDERS: PCP Family Medicine; Visit Provider Nurse Practitioner
DX: I65.23 Occlusion and stenosis of bilateral carotid arteries (principal); E04.1 Nontoxic single thyroid nodule
CPT/HCPCS: 93880